=== PATIENT | female | born 1950 | race Caucasian/White ===

== ENCOUNTER 2021-04-24 12:48 | Emergency (ER) | payer MEDICARE, OTHER ==
[~2021-04-24] VITALS: Ht 160 cm; Wt 59.0 kg
--- NOTE | 2021-04-24 13:09 | NUR ---
PT IS IN ROOM #2B. DR SMART EVALUATED THE PT.
[2021-04-24] MEDS ORDERED: NAPH15DR68 OP (13:11)
[2021-04-24] MEDS ORDERED: CETI10CA PO (13:18)
--- NOTE | 2021-04-24 13:39 | NUR ---
Patient discharged to home in stable condition with steady gait using her own walker. Written and verbal after care instructions given to patient and her family member. Patient verbalized understanding and compliance of instructions. Stressed follow up with your primary doctor and opthalmologist or return to ER for worsening s/s.
== END 2021-04-24 13:46 | disposition home or self-care (01) ==
LOC: ER 12:57
DX: H10.13 Acute atopic conjunctivitis, bilateral (principal); J45.909 Unspecified asthma, uncomplicated; R03.0 Elevated blood-pressure reading, without diagnosis of hypertension
CPT/HCPCS: A4663

== ENCOUNTER 2022-05-03 09:05 | Emergency (ER) | payer MEDICARE, OTHER ==
[~2022-05-03] VITALS: Ht 160 cm; Wt 59.0 kg
[~2022-05-03 09:05] MED LIST: CETI10CA PO; NAPH15DR68 OP
[2022-05-03 09:38] LABS: *BILIRUBIN,URIN NEGATIVE (NEGATIVE); *BLOOD, URINE 2+ (NEGATIVE); *CLARITY,URINE CLEAR (CLEAR); *COLOR,URINE YELLOW (YELLOW); *KETONES,URINE NEGATIVE (NEGATIVE); LEUKOCYTE ESTERASE ,URINE 2+ (NEGATIVE); NITRITE, URINE NEGATIVE (NEGATIVE); UGLUCOSE NEGATIVE (NEGATIVE)
--- NOTE | 2022-05-03 09:40 | NUR ---
Mel tobias in EDM - 05/03/22 at 0942 by AKIRA Patient discharged to home in stable condition. Written and verbal after care instructions given. Patient verbalizes understanding of instructions. Stressed follow up or return to ER for worsening s/s.
[2022-05-03] MEDS ORDERED: NITR100C11 PO (10:25)
[2022-05-03] MEDS ORDERED: ALBU8.5H8 INH (10:25)
--- NOTE | 2022-05-03 10:39 | NUR ---
Patient discharged to home in stable condition with brisk steady gait. Written and verbal after care instructions given to patient. Patient verbalized understanding and compliance of instructions. Stressed follow up with primary doctor or return to ER for worsening s/s.
[2022-05-03 13:31] LABS: BACTERIA,URINE FEW /HPF (NONE SEEN); SQUAMOUS EPITHELIAL CELL,UR FEW /HPF (NONE SEEN)
== END 2022-05-03 10:40 | disposition home or self-care (01) ==
LOC: ER 09:05
DX: N39.0 Urinary tract infection, site not specified (principal); J45.909 Unspecified asthma, uncomplicated; R31.9 Hematuria, unspecified
CPT/HCPCS: A4663

== ENCOUNTER 2023-05-21 17:08 | Emergency (ER) | payer MEDICARE, OTHER ==
[~2023-05-21] VITALS: Ht 160 cm; Wt 63.5 kg
[~2023-05-21 17:08] MED LIST changes: +ALBU8.5H8 INH; +NITR100C11 PO
[2023-05-21] MEDS ORDERED: predniSONE 20 MG TABLET ONE (18:01)
[2023-05-21] MEDS: ALBUTEROL SULFATE 2.5 MG/3 ML NEBU NEB ONE (18:02)
[2023-05-21] MEDS: IPRATROPIUM BROMIDE 0.5 MG/2.5 ML NEBU NEB ONE (18:02)
[2023-05-21 18:03] LABS: BASOPHILS # (AUTO) 0.2 K/UL (0.0-0.2); BASOPHILS % (AUTO) 3.3 % (0.0-2.0); EOSINOPHILS # (AUTO) 0.3 K/uL (0.0-0.7); EOSINOPHILS % (AUTO) 4.5 % (0.0-7.0); HEMATOCRIT 27.7 % (31.2-41.9); HEMOGLOBIN 9.2 g/dL (10.9-14.3); LYMPHOCYTES # (AUTO) 1.4 K/uL (0.8-4.8); LYMPHOCYTES % (AUTO) 25.1 % (20.5-51.5); MEAN CORPUSCULAR HEMOGLOBIN 26.2 uug (24.7-32.8); MEAN CORPUSCULAR HGB CONC 33 g/dL (32.3-35.6); MEAN CORPUSCULAR VOLUME 78.8 fL (75.5-95.3); MONOCYTES # (AUTO) 0.3 K/uL (0.1-1.30); MONOCYTES % (AUTO) 5.9 % (0.0-11.0); NEUTROPHILS # (AUTO) 3.5 K/uL (1.8-8.9); NEUTROPHILS % (AUTO) 61.2 % (38.5-71.5); PLATELET COUNT (AUTO) 267 K/uL (179-408); RED BLOOD CELL COUNT(AUTO) 3.52 MIL/uL (3.63-4.92); RED CELL DISTRIBUTION WIDTH 16.1 % (12.3-17.7); WHITE BLOOD COUNT (AUTO) 5.7 K/uL (3.8-11.8)
[2023-05-21] MEDS ORDERED: ALBUTEROL SULFATE 2.5 MG/3 ML NEBU ONE (18:05)
[2023-05-21] MEDS ORDERED: IPRATROPIUM BROMIDE 0.5 MG/2.5 ML NEBU ONE (18:05)
[2023-05-21] MEDS: predniSONE 20 MG TABLET PO ONE (18:08)
[2023-05-21 18:11] LABS: DIFFERENTIAL COMMENT 1
[2023-05-21 18:17] LABS: CALCIUM 8.2 mg/dL (8.5-10.1); CARBON DIOXIDE 26 mmol/L (21-32); CHLORIDE 105 mmol/L (98-107); CREATININE 0.7 mg/dL (0.6-1.3); GLUCOSE 130 mg/dL (74-106); SODIUM SERUM 141 mmol/L (136-145); UREA NITROGEN, BLOOD 16 mg/dL (7-18)
[2023-05-21 18:25] LABS: ALANINE AMINOTRANSFERASE 20 U/L (14-59); ALBUMIN 3.1 g/dL (3.4-5.0); ALKALINE PHOSPHATASE 91 U/L (50-136); ASPARTATE AMINOTRANSFERASE 12 U/L (15-37); BILIRUBIN,TOTAL 0.2 mg/dL (0.2-1.0); TOTAL PROTEIN, SERUM 7.1 g/dL (6.4-8.2)
[2023-05-21 18:34] LABS: BILIRUBIN,DIRECT < 0.1 mg/dL (0.0-0.2)
[2023-05-21] MEDS ORDERED: IV NORMAL SALINE 250 ML IV ONE (18:34)
[2023-05-21] MEDS ORDERED: IOHEXOL 350 100 ML INFUS..BTL ONE (18:34)
[2023-05-21] MEDS ORDERED: SWABABLE VALVE TRANSFER SET EA MC ONE (18:35)
[2023-05-21 19:00] VITALS: O2SAT 97
[2023-05-21 22:45] VITALS: BP 134/70; O2SAT 97
== END 2023-05-21 22:45 | disposition home or self-care (01) ==
LOC: ER 17:10
DX: R07.89 Other chest pain (principal); R06.00 Dyspnea, unspecified; J45.909 Unspecified asthma, uncomplicated; Z79.899 Other long term (current) drug therapy
CPT/HCPCS: 99285; 71275; 71045; 80076; 80048; 85025; 85379; 84484 ×2; 36415; 93005 ×2; J7512; Q9967; A4606; A4663; J3590

== ENCOUNTER 2023-07-12 10:29 | Emergency (ER) | payer MEDICARE, OTHER ==
[~2023-07-12] VITALS: Ht 160 cm; Wt 61.2 kg
[2023-07-12] MEDS: IPRATROPIUM BROMIDE 0.5 MG/2.5 ML NEBU NEB ONE (10:58)
[2023-07-12] MEDS ORDERED: IPRATROPIUM BROMIDE 0.5 MG/2.5 ML NEBU ONE (11:00)
[2023-07-12] MEDS ORDERED: ALBUTEROL SULFATE 2.5 MG/3 ML NEBU ONE (11:00)
[2023-07-12 11:01] VITALS: O2SAT 95
[2023-07-12] MEDS: ALBUTEROL SULFATE 2.5 MG/3 ML NEBU NEB ONE (11:01)
[2023-07-12 11:11] VITALS: O2SAT 95; O2SAT 99
[2023-07-12 11:24] LABS: BASOPHILS # (AUTO) 0.1 K/UL (0.0-0.2); BASOPHILS % (AUTO) 1.5 % (0.0-2.0); EOSINOPHILS # (AUTO) 0.1 K/uL (0.0-0.7); EOSINOPHILS % (AUTO) 2.8 % (0.0-7.0); HEMATOCRIT 25.2 % (31.2-41.9); HEMOGLOBIN 7.9 g/dL (10.9-14.3); LYMPHOCYTES # (AUTO) 1.8 K/uL (0.8-4.8); LYMPHOCYTES % (AUTO) 33.8 % (20.5-51.5); MEAN CORPUSCULAR HEMOGLOBIN 22.2 uug (24.7-32.8); MEAN CORPUSCULAR HGB CONC 31 g/dL (32.3-35.6); MEAN CORPUSCULAR VOLUME 71.1 fL (75.5-95.3); MONOCYTES # (AUTO) 0.4 K/uL (0.1-1.30); MONOCYTES % (AUTO) 8.1 % (0.0-11.0); NEUTROPHILS # (AUTO) 2.9 K/uL (1.8-8.9); NEUTROPHILS % (AUTO) 53.8 % (38.5-71.5); PLATELET COUNT (AUTO) 261 K/uL (179-408); RED BLOOD CELL COUNT(AUTO) 3.55 MIL/uL (3.63-4.92); RED CELL DISTRIBUTION WIDTH 16.8 % (12.3-17.7); WHITE BLOOD COUNT (AUTO) 5.3 K/uL (3.8-11.8)
[2023-07-12 11:41] LABS: CARBON DIOXIDE 26 mmol/L (21-32); CHLORIDE 104 mmol/L (98-107); CREATININE 0.6 mg/dL (0.6-1.3); GLUCOSE 115 mg/dL (74-106); POTASSIUM 4.5 mmol/L (3.5-5.1); SODIUM SERUM 139 mmol/L (136-145); UREA NITROGEN, BLOOD 12 mg/dL (7-18)
[2023-07-12 11:54] LABS: NT-PRO BNP 179 pg/mL (0-125)
[2023-07-12 12:33] LABS: IRON, SERUM 11 ug/dL (50-175)
[2023-07-12] MEDS ORDERED: ALBU6.7H9 INH (13:47)
[2023-07-12] MEDS ORDERED: FERR325T23 PO (13:47)
[2023-07-12 14:30] VITALS: BP 133/88; TEMP 98.1; O2SAT 98
== END 2023-07-12 14:31 | disposition home or self-care (01) ==
LOC: ER 10:29
DX: R06.00 Dyspnea, unspecified (principal); D50.9 Iron deficiency anemia, unspecified; J45.909 Unspecified asthma, uncomplicated; Z79.899 Other long term (current) drug therapy
CPT/HCPCS: 36415; 71045; 83550; 83735; 85025; 93005; A4606; A4663; J3590

== ENCOUNTER 2023-09-02 02:10 | Emergency (ER) | payer MEDICARE, OTHER ==
[~2023-09-02] VITALS: Ht 160 cm; Wt 59.0 kg
[~2023-09-02 02:10] MED LIST changes: +ALBU6.7H9 INH; +FERR325T23 PO
[2023-09-02] MEDS ORDERED: CEPH500C2 PO (04:58)
[2023-09-02] MEDS ORDERED: PHEN-704 PO (04:58)
[2023-09-02 07:10] VITALS: BP 138/73; O2SAT 97
== END 2023-09-02 05:07 | disposition home or self-care (01) ==
LOC: ER 02:14
DX: R30.0 Dysuria (principal); J45.909 Unspecified asthma, uncomplicated; Z79.899 Other long term (current) drug therapy
CPT/HCPCS: A4606; A4663

== ENCOUNTER 2023-10-01 08:54 | Emergency (ER) | payer MEDICARE, OTHER ==
[~2023-10-01] VITALS: Ht 165.1 cm; Wt 59.0 kg
[~2023-10-01 08:54] MED LIST changes: +CEPH500C2 PO; +PHEN-704 PO
[2023-10-01 09:45] LABS: *BILIRUBIN,URIN NEGATIVE (NEGATIVE); *CLARITY,URINE CLEAR (CLEAR); *COLOR,URINE YELLOW (YELLOW); *KETONES,URINE NEGATIVE (NEGATIVE); *PROTEIN,URINE NEGATIVE (NEGATIVE); *UROBILINOGEN,URINE 0.2 E.U./dl (NORMAL); LEUKOCYTE ESTERASE ,URINE 1+ (NEGATIVE); NITRITE, URINE NEGATIVE (NEGATIVE); UGLUCOSE NEGATIVE (NEGATIVE)
[2023-10-01 09:46] LABS: *BLOOD, URINE TRACE (NEGATIVE)
[2023-10-01] MEDS ORDERED: FERR325T23 PO (10:27)
[2023-10-01] MEDS ORDERED: DOXY-226 PO (10:27)
[2023-10-01 10:32] VITALS: BP 138/78; TEMP 97; O2SAT 96
[2023-10-01 16:02] LABS: BACTERIA,URINE FEW /HPF (NONE SEEN); RBC,URINE 0-3 /HPF (0-3)
[2023-10-01 16:03] LABS: SQUAMOUS EPITHELIAL CELL,UR FEW /HPF (NONE SEEN)
== END 2023-10-01 10:33 | disposition home or self-care (01) ==
LOC: ER 08:55
DX: N39.0 Urinary tract infection, site not specified (principal); D50.8 Other iron deficiency anemias; Z79.51 Long term (current) use of inhaled steroids; Z79.899 Other long term (current) drug therapy
CPT/HCPCS: A4606; A4663

== ENCOUNTER 2024-02-16 10:10 | Emergency (ER) | payer MEDICARE, OTHER ==
[~2024-02-16] VITALS: Ht 160 cm; Wt 63.5 kg
[~2024-02-16 10:10] MED LIST changes: +DOXY-226 PO
[2024-02-16 10:14] VITALS: O2SAT 97
[2024-02-16] MEDS ORDERED: FERR1TAB90 PO (10:30)
== END 2024-02-16 10:50 | disposition home or self-care (01) ==
LOC: ER 10:10
DX: R53.1 Weakness (principal); Z76.0 Encounter for issue of repeat prescription; Z79.899 Other long term (current) drug therapy
CPT/HCPCS: A4606; A4663

== ENCOUNTER 2024-03-29 18:01 | Emergency (ER) | payer MEDICARE, OTHER ==
[~2024-03-29] VITALS: Ht 160 cm; Wt 63.5 kg
[~2024-03-29 18:01] MED LIST changes: +FERR1TAB90 PO
[2024-03-29 19:46] LABS: BASOPHILS # (AUTO) 0.1 K/UL (0.0-0.2); EOSINOPHILS # (AUTO) 0.2 K/uL (0.0-0.7); EOSINOPHILS % (AUTO) 2.7 % (0.0-7.0); HEMATOCRIT 39.1 % (31.2-41.9); LYMPHOCYTES # (AUTO) 1.4 K/uL (0.8-4.8); LYMPHOCYTES % (AUTO) 19.1 % (20.5-51.5); MEAN CORPUSCULAR HEMOGLOBIN 31.2 uug (24.7-32.8); MEAN CORPUSCULAR HGB CONC 33 g/dL (32.3-35.6); MEAN CORPUSCULAR VOLUME 93.7 fL (75.5-95.3); MONOCYTES # (AUTO) 0.5 K/uL (0.1-1.30); MONOCYTES % (AUTO) 6.3 % (0.0-11.0); NEUTROPHILS # (AUTO) 5.4 K/uL (1.8-8.9); NEUTROPHILS % (AUTO) 70.9 % (38.5-71.5); PLATELET COUNT (AUTO) 180 K/uL (179-408); RED BLOOD CELL COUNT(AUTO) 4.17 MIL/uL (3.63-4.92); RED CELL DISTRIBUTION WIDTH 12.4 % (12.3-17.7); WHITE BLOOD COUNT (AUTO) 7.6 K/uL (3.8-11.8)
[2024-03-29 19:56] LABS: DIFFERENTIAL COMMENT 1
[2024-03-29 19:58] LABS: *BILIRUBIN,URIN NEGATIVE (NEGATIVE); *BLOOD, URINE 1+ (NEGATIVE); *CLARITY,URINE CLEAR (CLEAR); *COLOR,URINE YELLOW (YELLOW); *KETONES,URINE NEGATIVE (NEGATIVE); *PROTEIN,URINE TRACE (NEGATIVE); LEUKOCYTE ESTERASE ,URINE TRACE (NEGATIVE); NITRITE, URINE NEGATIVE (NEGATIVE); PH,URINE 5.5 (5.0-8.0); UGLUCOSE NEGATIVE (NEGATIVE)
[2024-03-29 19:58] LABS: CARBON DIOXIDE 28 mmol/L (21-32); CHLORIDE 102 mmol/L (98-107); CREATININE 0.6 mg/dL (0.6-1.3); GLUCOSE 94 mg/dL (74-106); POTASSIUM 4.4 mmol/L (3.5-5.1); SODIUM SERUM 139 mmol/L (136-145); UREA NITROGEN, BLOOD 11 mg/dL (7-18)
[2024-03-29] MEDS: ASPIRIN 81 MG TAB.CHEW PO ONE (19:58)
[2024-03-29] MEDS: NITROFURANTOIN/NITROFURAN MAC 100 MG CAPSULE PO ONE (19:58)
[2024-03-29] MEDS ORDERED: ASPIRIN 81 MG TAB.CHEW ONE (19:58)
[2024-03-29] MEDS: IV NORMAL SALINE 1000 ML BAG IV ONE (19:58)
[2024-03-29 20:03] LABS: BACTERIA,URINE FEW /HPF (NONE SEEN)
[2024-03-29 20:04] LABS: SPERM,URINE FEW /HPF (NONE SEEN)
[2024-03-29 20:05] LABS: SQUAMOUS EPITHELIAL CELL,UR FEW /HPF (NONE SEEN)
[2024-03-29 20:11] LABS: ALANINE AMINOTRANSFERASE 19 U/L (14-59); ALBUMIN 3.2 g/dL (3.4-5.0); ALKALINE PHOSPHATASE 92 U/L (50-136); ASPARTATE AMINOTRANSFERASE 14 U/L (15-37); BILIRUBIN,DIRECT 0.1 mg/dL (0.0-0.2); BILIRUBIN,TOTAL 0.3 mg/dL (0.2-1.0); NT-PRO BNP 55 pg/mL (0-125); TOTAL PROTEIN, SERUM 9.3 g/dL (6.4-8.2)
[2024-03-29] MEDS: AZITHROMYCIN 250 MG TABLET PO ONE (20:45)
[2024-03-29] MEDS ORDERED: IOHEXOL 350 100 ML INFUS..BTL ONE (20:51)
[2024-03-29] MEDS ORDERED: IV NORMAL SALINE 250 ML IV ONE (20:51)
[2024-03-29] MEDS ORDERED: SWABABLE VALVE TRANSFER SET EA MC ONE (20:51)
[2024-03-29] MEDS ORDERED: AZITHROMYCIN 250 MG TABLET ONE (21:10)
[2024-03-29] MEDS ORDERED: NITR-84 PO (22:30)
[2024-03-29] MEDS ORDERED: AZIT250T13 PO (22:30)
[2024-03-29 22:58] VITALS: BP 143/85; TEMP 98.3; O2SAT 97
== END 2024-03-30 00:06 | disposition home or self-care (01) ==
LOC: ER 18:01
DX: R07.89 Other chest pain (principal); J40 Bronchitis, not specified as acute or chronic; N39.0 Urinary tract infection, site not specified; R79.89 Other specified abnormal findings of blood chemistry; Z20.822 Contact with and (suspected) exposure to COVID-19; Z59.00 Homelessness unspecified
CPT/HCPCS: 99285; 96360; 71275; 71045; 87426; 87804 ×2; 80076; 80048; 81001; 83880; 85025; 84145; 85379; 87040 ×2; 84484; 36415; 93005; Q9967; J7040; A4606; A4663; Q0144

== ENCOUNTER 2024-05-13 12:55 | Emergency (ER) | payer MEDICARE, OTHER ==
[~2024-05-13] VITALS: Ht 160 cm; Wt 62.6 kg
[~2024-05-13 12:55] MED LIST changes: +AZIT250T13 PO; +NITR-84 PO
[2024-05-13 13:33] LABS: BASOPHILS # (AUTO) 0.1 K/UL (0.0-0.2); BASOPHILS % (AUTO) 1.2 % (0.0-2.0); EOSINOPHILS # (AUTO) 0.2 K/uL (0.0-0.7); EOSINOPHILS % (AUTO) 3.1 % (0.0-7.0); HEMOGLOBIN 12.8 g/dL (10.9-14.3); LYMPHOCYTES # (AUTO) 1.9 K/uL (0.8-4.8); LYMPHOCYTES % (AUTO) 33.4 % (20.5-51.5); MEAN CORPUSCULAR HEMOGLOBIN 31.2 uug (24.7-32.8); MEAN CORPUSCULAR HGB CONC 34 g/dL (32.3-35.6); MEAN CORPUSCULAR VOLUME 92.4 fL (75.5-95.3); MONOCYTES # (AUTO) 0.3 K/uL (0.1-1.30); MONOCYTES % (AUTO) 5.5 % (0.0-11.0); NEUTROPHILS # (AUTO) 3.3 K/uL (1.8-8.9); NEUTROPHILS % (AUTO) 56.8 % (38.5-71.5); PLATELET COUNT (AUTO) 183 K/uL (179-408); RED BLOOD CELL COUNT(AUTO) 4.11 MIL/uL (3.63-4.92); WHITE BLOOD COUNT (AUTO) 5.8 K/uL (3.8-11.8)
[2024-05-13 13:51] LABS: DIFFERENTIAL COMMENT 1
[2024-05-13 14:07] LABS: ALANINE AMINOTRANSFERASE 16 U/L (14-59); ALBUMIN 3.4 g/dL (3.4-5.0); ALKALINE PHOSPHATASE 82 U/L (50-136); ASPARTATE AMINOTRANSFERASE 19 U/L (15-37); BILIRUBIN,DIRECT 0.1 mg/dL (0.0-0.2); BILIRUBIN,TOTAL 0.3 mg/dL (0.2-1.0); CALCIUM 9.2 mg/dL (8.5-10.1); CARBON DIOXIDE 26 mmol/L (21-32); CHLORIDE 103 mmol/L (98-107); CREATININE 0.6 mg/dL (0.6-1.3); GLUCOSE 116 mg/dL (74-106); NT-PRO BNP 105 pg/mL (0-125); POTASSIUM 4.3 mmol/L (3.5-5.1); SODIUM SERUM 136 mmol/L (136-145); TOTAL PROTEIN, SERUM 7.3 g/dL (6.4-8.2); UREA NITROGEN, BLOOD 16 mg/dL (7-18)
[2024-05-13] MEDS ORDERED: ALBU8.5H8 INH (14:47)
[2024-05-13] MEDS ORDERED: PRED50TA PO (14:47)
[2024-05-13 15:05] VITALS: BP 123/71; O2SAT 97
== END 2024-05-13 15:06 | disposition home or self-care (01) ==
LOC: ER 12:55
DX: J45.901 Unspecified asthma with (acute) exacerbation (principal); R94.31 Abnormal electrocardiogram [ECG] [EKG]; Z87.440 Personal history of urinary (tract) infections; Z60.2 Problems related to living alone
CPT/HCPCS: 36415; 71045; 84484; 85025; 85730; A4606; A4663

== ENCOUNTER 2024-05-23 08:04 | Emergency (ER) | payer MEDICARE, OTHER ==
[~2024-05-23] VITALS: Ht 160 cm; Wt 63.5 kg
[~2024-05-23 08:04] MED LIST changes: +PRED50TA PO
[2024-05-23] MEDS ORDERED: NAPH15DR68 OP (09:18)
[2024-05-23 09:22] VITALS: BP 133/80; O2SAT 94
== END 2024-05-23 09:30 | disposition home or self-care (01) ==
LOC: ER 08:04
DX: H57.89 Other specified disorders of eye and adnexa (principal); J45.909 Unspecified asthma, uncomplicated; Z76.0 Encounter for issue of repeat prescription; Z79.52 Long term (current) use of systemic steroids; Z60.2 Problems related to living alone; Z59.00 Homelessness unspecified
CPT/HCPCS: A4606; A4663

== ENCOUNTER 2024-12-17 12:08 | Emergency (ER) | payer MEDICARE, OTHER ==
[~2024-12-17] VITALS: Ht 160 cm; Wt 61.2 kg
[2024-12-17 12:09] VITALS: BP 126/55
[2024-12-17] MEDS ORDERED: PHEN-704 PO (12:28)
[2024-12-17] MEDS ORDERED: CEPH500C2 PO (12:28)
[2024-12-17 13:37] VITALS: BP 126/55; O2SAT 95
[2024-12-17 14:44] LABS: *BILIRUBIN,URIN NEGATIVE (NEGATIVE); *CLARITY,URINE CLEAR (CLEAR); *COLOR,URINE YELLOW (YELLOW); *KETONES,URINE NEGATIVE (NEGATIVE); *PROTEIN,URINE NEGATIVE (NEGATIVE); *UROBILINOGEN,URINE 0.2 E.U./dl (NORMAL); LEUKOCYTE ESTERASE ,URINE 1+ (NEGATIVE); NITRITE, URINE NEGATIVE (NEGATIVE); UGLUCOSE NEGATIVE (NEGATIVE)
[2024-12-17 14:52] LABS: *BLOOD, URINE TRACE (NEGATIVE)
[2024-12-17 15:01] LABS: SQUAMOUS EPITHELIAL CELL,UR FEW /HPF (NONE SEEN)
== END 2024-12-17 13:37 | disposition home or self-care (01) ==
LOC: ER 12:08
DX: N39.0 Urinary tract infection, site not specified (principal); R30.0 Dysuria; J45.909 Unspecified asthma, uncomplicated; Z79.52 Long term (current) use of systemic steroids; Z87.440 Personal history of urinary (tract) infections
CPT/HCPCS: 87077; 87086; A4606; A4663